=== PATIENT | male | born 1950 | race Caucasian/White ===

== ENCOUNTER 2017-07-03 18:21 | Emergency (ER) | payer OTHER ==
[2017-07-03 18:38] VITALS: TEMP 97.7
--- NOTE | 2017-07-03 19:03 | EDPHY ---
H & P Stated Complaint: pain in right foot 4d pain. hx of pe Time Seen by Provider: 07/03/17 18:30 HPI/ROS: CHIEF COMPLAINT: Right ankle pain and swelling HISTORY OF PRESENT ILLNESS: This is a generally healthy 58-year-old male with a history of pulmonary embolus about 5 years ago, no longer anticoagulated. He presents this evening with 4 days of right ankle pain and swelling, both of which have been increasing. He has had no trauma. The pain comes and goes. The swelling is primarily on the side of his ankle. He has been taking Advil on and off and took 400 mg of ibuprofen 2 hours prior to his presentation. He has not been aware of any warmth or erythema of this ankle. He has not had fever. He has had gout before, not in this location, and states that this does not feel like gout. The nurse from his primary care physician's office recommended that he come for evaluation. REVIEW OF SYSTEMS: A ten point review of systems was performed and is negative with the exception of the items mentioned in the HPI. 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 He is . He does not use tobacco products. He drinks alcohol socially. General Appearance: Alert. Vital signs reviewed. Blood pressure 129/76 at triage, vital signs otherwise normal. Eyes: Pupils equal and round, no conjunctival injection, no discharge. Anicteric. Neck: No lymphadenopathy, supple. Respiratory: Lungs are clear to auscultation; no wheezes, rales, or rhonchi. Cardiovascular: Regular rate and rhythm; no murmur, rub, or gallop. Gastrointestinal: Abdomen is soft and nontender, no masses or organomegaly, bowel sounds normal. Skin: Warm and dry, no rashes on exposed skin, normal color. Extremities: Swelling of the right lateral ankle. No warmth or redness. No pain with active range of motion. Pulses: 2+ dorsalis pedis pulses bilaterally. Neurological: Alert and oriented. Moving all four extremities easily and equally. Psychiatric: Normal affect. - Personal History Current Tetanus/Diphtheria Vaccine: Unsure Current Tetanus Diphtheria and Acellular Pertussis (TDAP): Unsure - Medical/Surgical History Hx Asthma: No Hx Chronic Respiratory Disease: No Hx Diabetes: No Hx Cardiac Disease: No Hx Renal Disease: No Hx Cirrhosis: No Hx Alcoholism: No Hx HIV/AIDS: No Hx Splenectomy or Spleen Trauma: No Other PMH: PNA, PE. high cholesterol - Social History Smoking Status: Former smoker Constitutional: Initial Vital Signs Temperature (C) 36.5 C 07/03/17 18:31 Heart Rate 60 07/03/17 18:31 Respiratory Rate 16 07/03/17 18:31 Blood Pressure 129/76 H 07/03/17 18:31 O2 Sat (%) 94 07/03/17 18:31 O2 Delivery Mode Room Air Allergies/Adverse Reactions: No Known Allergies Allergy (Verified 07/03/17 18:39) Home Medications: Medication Instructions Recorded ASPIRIN 12/24/15 Allopurinol 12/24/15 Probiotic 12/24/15 Statin 07/03/17 Medical Decision Making - Diagnostics Imaging Results: Imaging Impressions Ankle X-Ray 07/03/17 18:59 Impression: 1. No acute osseous abnormality seen about the right ankle. 2. Mild spurring medial aspect of the ankle joint. 3. Stable large os vesalianum Extremity Venous Study 07/03/17 18:59 Impression: No deep venous thrombosis in the right lower extremity. Findings discussed with Mary Khan M.D. at 19:36 hour, 07/03/2017. Imaging: Discussed imaging studies w/ manager call Radiologist, I viewed and interpreted images myself ED Course/Re-evaluation: 66-year-old male with a history of PE who presents with atraumatic right ankle swelling and waxing and waning pain. Ultrasound with right lower extremity negative for DVT. He has no signs or symptoms of PE. X-ray of the right ankle negative for fracture or dislocation. No evidence for osteo myelitis. He does not have significant warmth or redness of this ankle. Gout and pseudogout are possibilities, although he states that this pain is not like the pain he previously experienced with gout. It is not clear what is causing his pain. I am recommending symptomatic treatment with NSAIDs and Tylenol. I recommend follow-up with his primary care provider if he is not improving or if he worsens. Differential Diagnosis: I considered a differential diagnosis that includes but is not limited to gout, pseudogout, septic arthritis, ankle sprain, osteomyelitis, fracture. Departure - Departure Disposition: Home, Routine, Self-Care Clinical Impression: Ankle pain, right Qualifiers: Chronicity: acute Qualified Code(s): M25.571 - Pain in right ankle and joints of right foot Condition: Good Instructions: Arthralgia (ED) Additional Instructions: Adult Pain & Fever Control: We recommend Acetaminophen (Tylenol) and Ibuprofen (Motrin,Advil) for pain and fever control. When fever is high or pain severe, both drugs can be used at the same time, but at different intervals. Please note the time differences. Your dose is: Acetaminophen 650mg every 4 to 6 hours Ibuprofen 400mg every 8 hours with food OR Note: do not take Acetaminophen with Hydrocodone (Vicodin, Lortab) or Oycodone (Percocet). These medications also contain Acetaminophen. No more than 3000mg of Acetaminophen should be taken in 24 hours (for an adult). If you're ankle is not improving I recommend that you follow up with Dr. Gordillo. If you are worse in any way--redness, warmth, severe persistent pain--please be re-evaluated. Referrals: Regine Gordillo MD [Primary Care Provider] - As per Instructions
[2017-07-03 20:50] VITALS: BP 132/76; PULSE 72; RESP 14; O2SAT 95
== END 2017-07-03 20:30 | disposition home or self-care (01) ==
LOC: CED 18:21
DX: M25.571 Pain in right ankle and joints of right foot (principal); Z79.82 Long term (current) use of aspirin; Z87.891 Personal history of nicotine dependence
CPT/HCPCS: 73610-PO; 93971-PO

== ENCOUNTER → 2018-01-30 | Outpatient (CLI) | payer OTHER | LOC: CIMAGING 13:58 | PROVIDERS: ATTEND Family Medicine | DX: J44.9 Chronic obstructive pulmonary disease, unspecified (principal); Z86.711 Personal history of pulmonary embolism | CPT/HCPCS: 71046-PO ==

== ENCOUNTER 2018-08-01 09:28 | Day surgery (SDC) | payer OTHER ==
[2018-08-01] MEDS ORDERED: ACETAMINOPHEN 500 MG TAB PO ONE (09:36)
[2018-08-01] MEDS ORDERED: GABAPENTIN 300 MG CAP PO ONE (09:36)
[2018-08-01] MEDS ORDERED: ceFAZolin 2 GM/DEXTROSE 100 ML IV ONE (09:36)
[2018-08-01] MEDS ORDERED: LR 1,000 ML IV ONE (09:37)
[2018-08-01] MEDS ORDERED: THROMBIN (BOVINE) 20,000 UNIT VIAL TP ONE (09:54)
[2018-08-01] MEDS ORDERED: CHLORHEXIDINE GLUC HIBICLENS 118 ML BTL TP ONE (09:54)
[2018-08-01] MEDS ORDERED: BUPIVACAINE 0.25% 30 ML SDV ONE (09:55)
[2018-08-01] MEDS ORDERED: EPINEPHrine 1 MG/ML INJ ONE (09:55)
[2018-08-01] MEDS ORDERED: BACITRACIN 50,000 UNITS/10 ML SYR IRR ONE (09:55)
--- NOTE | 2018-08-01 10:03 | PDANEPAE ---
ANE History of Present Illness HNP here for microdisc ANE Past Medical History - Cardiovascular History Hx Hypertension: No Hx Arrhythmias: No Hx Chest Pain: No Hx Coronary Artery / Peripheral Vascular Disease: No Hx CHF / Valvular Disease: No Hx Palpitations: No - Pulmonary History Hx COPD: No Hx Asthma/Reactive Airway Disease: No Hx Recent Upper Respiratory Infection: No Hx Oxygen in Use at Home: No Hx Sleep Apnea: No Sleep Apnea Screening Result - Last Documented: Negative Pulmonary History Comment: PE 2006 - Neurologic History Hx Cerebrovascular Accident: No Hx Seizures: No Hx Dementia: No - Endocrine History Hx Diabetes: No - Renal History Hx Renal Disorders: No - Liver History Hx Hepatic Disorders: No - Neurological & Psychiatric Hx Hx Neurological and Psychiatric Disorders: Yes Neurological / Psychiatric History Comment: DEPRESSION/ANXIETY. MILD COGNITIVE IMPAIRMENT - Cancer History Hx Cancer: Yes Cancer History Comment: SKING - Congenital Disorder History Hx Congenital Disorders: No - GI History Hx Gastrointestinal Disorders: No - Other Health History Other Health History: UPPER DENTURES. DDD/STENOSIS/LT LEG N/T. RT HIP ARTHRITIS. GOUT. OSTEOARTHRITIS - Chronic Pain History Chronic Pain: Yes (LOWER BACK WEAKNESS LT LEG) - Surgical History Prior Surgeries: NONE ANE Review of Systems Review of Systems: - Exercise capacity METS (RN): 4 METS ANE Patient History - Allergies Allergies/Adverse Reactions: No Known Allergies Allergy (Verified 07/03/17 18:39) - Home Medications Home Medications: ASPIRIN DAILY 12/24/15 [Last Taken Unknown] Allopurinol HS 12/24/15 [Last Taken Unknown] Atorvastatin Calcium HS 07/31/18 [Last Taken Unknown] Herbals/Supplements -Info Only DAILY 07/31/18 [Last Taken Unknown] MIRTAZAPINE HS 07/31/18 [Last Taken Unknown] Ocuvite Adult 50 Plus Softgel DAILY 07/31/18 [Last Taken Unknown] Venlafaxine 75MG (*) DAILY AT 6PM 07/31/18 [Last Taken Unknown] - NPO status NPO Status: no food or drink >8 hours NPO Since - Liquids (Date): 07/31/18 NPO Since - Liquids (Time): 20:30 NPO Since - Solids (Date): 07/31/18 NPO Since - Solids (Time): 20:30 - Anes Hx Anes Hx: no prior problems - Smoking Hx Smoking Status: Former smoker - Alcohol Use Alcohol Use: Rarely - Family Anes Hx Family Anes Hx: none Family Hx Anesthesia Complications: NONE ANE Labs/Vital Signs - Vital Signs Vital Signs: reviewed preoperatively; see RN documention for details Height: 180.34 cm Weight: 85.275 kg ANE Physical Exam - Airway Neck exam: FROM Mallampati Score: Class 2 Mouth exam: dentures - Pulmonary Pulmonary: no respiratory distress, clear to auscultation - Cardiovascular Cardiovascular: regular rate and rhythym, no murmur, rub, or gallop - ASA Status ASA Status: II ANE Anesthesia Plan Anesthesia Plan: general endotracheal anesthesia Total IV Anesthesia: Yes
[2018-08-01] MEDS ORDERED: MIDAZOLAM 2 MG/2 ML VIAL IVP ONE (10:04)
--- NOTE | 2018-08-01 10:08 | PDHPUP ---
History & Physical Update H&P update statement: This history and physical update is based on an assessment of the patient which was completed after admission or registration (within 24 hours), but prior to the surgery/procedure. H&P update: H&P reviewed & patient examined, no change in patient's condition since H&P completed (Consents signed and site marked. All questions answered.)
[2018-08-01] MEDS ORDERED: fentaNYL 100 MCG/2 ML INJ ONE (10:12)
[2018-08-01] MEDS ORDERED: PROPOFOL 200 MG/20 ML VIAL ONE (10:13)
[2018-08-01] MEDS ORDERED: ROCURONIUM 50 MG/5 ML VIAL ONE (10:13)
[2018-08-01] MEDS ORDERED: LIDOCAINE 2% 100 MG/5 ML SYR ONE (10:13)
[2018-08-01] MEDS ORDERED: PROPOFOL/EMULSION 500 MG/50 ML BOTTLE IV ONE (10:18)
[2018-08-01] MEDS ORDERED: REMIFENTANIL HCL 1 MG VIAL ONE (10:18)
[2018-08-01] MEDS ORDERED: DEXAMETHASONE 4 MG/ML VIAL IVP PRN (12:05)
[2018-08-01] MEDS ORDERED: ACETAMINOPHEN 500 MG TAB PO PRN (12:05)
[2018-08-01] MEDS ORDERED: NALOXONE HCL 0.4 MG/ML INJ IVP PRN (12:05)
[2018-08-01] MEDS ORDERED: ONDANSETRON 4 MG/2 ML VIAL IVP PRN (12:05)
[2018-08-01] MEDS ORDERED: oxyCODONE IR 5 MG TAB PO PRN (12:05)
[2018-08-01] MEDS ORDERED: fentaNYL 100 MCG/2 ML INJ IVP PRN (12:05)
[2018-08-01] MEDS ORDERED: HYDROCODONE/APAP 5/325 TAB PO PRN (12:05)
--- NOTE | 2018-08-01 12:07 | POSTANESTH ---
Post Anesthetic Evaluation Cardiovascular Status: Normal, Stable, Similar to Pre-Op Cond Respiratory Status: Normal, Stable, Similar to Pre-op Cond. Level of Consciousness/Mental Status: Can Participate in Eval, Alert and Oriented Pain Control: Adequate, Prn Tx Ordered Nausea/Vomiting Control: Adequate, Prn Tx Ordered Complications Possibly Related to Anesthesia: None Noted
--- NOTE | 2018-08-01 12:25 | NEUSURGPN ---
Assessment/Plan: POD #0 s/p let L3/4 hemilaminotomy with lateral recess decompression and foraminotomy with nerve root decompression - Doing well - dc home from PACU once d/c criteria met - scripts for Oxycodone and Flexeril on patient chart Subjective: No complaints; pain controlled Objective: Awake and follows commands in all 4 extremities 5/5 strength in bilateral UE/LE throughout including left hip flexor/knee flexion/extension and plantar/dorsiflexion intact sensation throughout Dressing C/D/I Urinary Catheter in Place: No - Physician Patient Seen by : [facility] Physical Exam - Vitals, I&O, Labs I and O 07/31/18 08/01/18 08/02/18 05:59 05:59 05:59 Weight 85.275 kg 85.275 kg Vital Signs Temp Pulse Resp BP Pulse Ox 36.4 C 56 L 14 168/92 H 98 08/01/18 09:54 08/01/18 09:54 08/01/18 09:54 08/01/18 09:54 08/01/18 09:54 ICD10 Worksheet Patient Problems: Problems Problem Status Onset Lumbar disc disease with radiculopathy Acute - ICD10 Problem Qualifiers (1) Lumbar disc disease with radiculopathy
--- NOTE | 2018-08-01 13:08 | GOP ---
DATE OF OPERATION: 08/01/2018 SURGEON: Fred Vance MD OBSERVATION NURSE: Haylie Tolentino, ANITRA. ANESTHESIA: General. PREOPERATIVE DIAGNOSIS: 1. Left-sided L3-L4 lateral recess and foraminal stenosis, secondary to a disk herniation. 2. Left lower extremity radiculopathy and weakness. 3. Treatment refractory to nonoperative intervention. POSTOPERATIVE DIAGNOSIS: 1. Left-sided L3-L4 lateral recess and foraminal stenosis, secondary to disk herniation. 2. Left lower extremity radiculopathy and weakness. 3. Treatment refractory to nonoperative intervention. PROCEDURE PERFORMED: 1. Left-sided L3-L4 hemilaminotomy with medial facetectomy, lateral recess decompression with foraminotomy nerve decompression. 2. Use of intraoperative fluoroscopy, less than 1 hour physician time. 3. Recent monitoring. 4. Use of operating microscope. FINDINGS: no large disc herniations or free fragments were found SPECIMENS: None. ESTIMATED BLOOD LOSS: 10 mL. INDICATIONS: The patient is a very pleasant 67-year-old gentleman who presented to my office with a several-month history of left lower extremity radiculopathy and had evidence of profound weakness of his left lower extremity. He had evidence of lateral recess stenosis and foraminal stenosis, secondary to large disk herniation behind the vertebral body of L3. He also had evidence of severe spinal stenosis at L2-3. After discussion of the risks, benefits, and treatment alternatives, we decided to proceed forth with surgery as described above. DESCRIPTION OF PROCEDURE: The patient was brought to the operating theater and underwent general endotracheal anesthesia without complications. He had Venodynes, VANITA hose, and the appropriate lines placed by Anesthesia. He was flipped prone on Víctor frame and all bony processes inspected and padded. The lower lumbar region was prepped and draped in the usual sterile surgical fashion. A time-out was completed per protocol and the patient received antibiotics within 1 hour of incision. Using live fluoroscopy and spinal needle, we picked our entry point to the L3- L4 level. This was marked in the midline. The incision was infiltrated with Marcaine with epinephrine. The incision was taken down with the scalpel blade and using monopolar, taken down the left side of the interlaminar space of L3- L4 and up cranially toward the pars. Deep retractors were placed to maintain our exposure and we confirmed our level using lateral fluoroscopy. The microscope was brought into the field to assist with microscopic dissection and to maintain illumination and magnification. Using a combination of bur tip on the drill bit and Kerrison punches, we completed the left-sided L3-L4 hemilaminotomy with medial facetectomy. We resected part of the pars. We resected ligamentum flavum and retracted the thecal sac medially. There was no evidence of a large or free fragment disk material there. We did notice some fluid in that area during retraction of the tissues. I felt cranially, caudally , and ventral and across the ventral aspect of thecal sac and did not find any disk herniations. There was a small amount of disk material emanating from the facet joint area, which I removed with the pituitaries. I also reached out and did a foraminotomy. Once I felt that everything was well decompressed, I obtained hemostasis with the bipolar. The wound was irrigated with copious bacitracin irrigation. Because we did not find any disk herniation correlating with the MRI scan from March, I did verify the patient's date of , location on the MRI scan as the left side, as well as information to verify that we were at the correct level on the patient. This was all verified twice by myself. At this point, the patient's wounds were dressed sterilely after being closed in multiple layers. He was then taken to recovery room with improvement in his overall neurological examination. There were no complications and no noted changes on neuromonitoring throughout the procedure. The use of the faculty research assistant was critical to the procedure to assist with retraction and protection of critical tissues. COMPLICATIONS: None. /[id number]/MODL MTDD
[2018-08-01 13:11] VITALS: BP 151/87
== END 2018-08-01 14:40 | disposition home or self-care (01) ==
LOC: FSGY 09:28
PROVIDERS: ATTEND Neurological Surgery
PROC: 00NY0ZZ Release Lumbar Spinal Cord, Open Approach (ICD-10-PCS; principal; 2018-08-01 12:30)
PROC: BR191ZZ Fluoroscopy of Lumbar Spine using Low Osmolar Contrast (ICD-10-PCS; principal; 2018-08-01 12:30)
PROC: 4A10X4G Monitoring of Central Nervous Electrical Activity, Intraoperative, External Approach (ICD-10-PCS; principal; 2018-08-01 12:30)
DX: M48.061 Spinal stenosis, lumbar region without neurogenic claudication (principal); M51.26 Other intervertebral disc displacement, lumbar region; M54.16 Radiculopathy, lumbar region; M21.372 Foot drop, left foot; G62.9 Polyneuropathy, unspecified; G89.29 Other chronic pain; F41.9 Anxiety disorder, unspecified; G47.00 Insomnia, unspecified; F32.9 Major depressive disorder, single episode, unspecified; Z86.711 Personal history of pulmonary embolism
CPT/HCPCS: J0171; J0690; J2001; J2250; J2704; J3010

== ENCOUNTER → 2018-08-11 | Outpatient (CLI) | payer OTHER | LOC: CIMAGING 10:37 | PROVIDERS: ATTEND Family Medicine | DX: N28.1 Cyst of kidney, acquired (principal); N28.89 Other specified disorders of kidney and ureter | CPT/HCPCS: 76770-PO ==

== ENCOUNTER 2018-08-15 09:38 | Observation (INO) | payer OTHER ==
[2018-08-15] MEDS ORDERED: ACETAMINOPHEN 500 MG TAB PO ONE (09:45)
[2018-08-15] MEDS ORDERED: ceFAZolin 2 GM/DEXTROSE 100 ML IV ONE (09:45)
[2018-08-15] MEDS ORDERED: GABAPENTIN 300 MG CAP PO ONE (09:45)
[2018-08-15] MEDS ORDERED: LR 1,000 ML IV ONE (09:47)
[2018-08-15] MEDS ORDERED: MIDAZOLAM 2 MG/2 ML VIAL IVP ONE (10:28)
--- NOTE | 2018-08-15 10:31 | PDANEPAE ---
ANE History of Present Illness 67 year old male for lumbar laminectomyL2 and L4. History of depression and elevated cholesterol. ANE Past Medical History - Cardiovascular History Hx Hypertension: No Hx Arrhythmias: No Hx Chest Pain: No Hx Coronary Artery / Peripheral Vascular Disease: No Hx CHF / Valvular Disease: No Hx Palpitations: No - Pulmonary History Hx COPD: No Hx Asthma/Reactive Airway Disease: No Hx Recent Upper Respiratory Infection: No Hx Oxygen in Use at Home: No Hx Sleep Apnea: No Sleep Apnea Screening Result - Last Documented: Negative Pulmonary History Comment: HX OF PE 2006 - Neurologic History Hx Cerebrovascular Accident: No Hx Seizures: No Hx Dementia: No Neurologic History Comment: CONTINUED SX'S AFTER SURGERY 08/01/18. MILD COGNITIVE IMPAIRMENT. DDD/STENOSIS. LT LEG N/T - Endocrine History Hx Diabetes: No - Renal History Hx Renal Disorders: No Renal History Comment: MOST RECENT MRI SHOWED RENAL CYST- PCP WANTED HIM TO HAVE RENAL US, RESULTS WERE INCONCLUSIVE SO THEY WILL ORDER A CT AT A LATER DATE PER PT REPORT - Liver History Hx Hepatic Disorders: No - Neurological & Psychiatric Hx Hx Neurological and Psychiatric Disorders: Yes Neurological / Psychiatric History Comment: DEPRESSION. ANXIETY - Cancer History Hx Cancer: Yes Cancer History Comment: SKIN - Congenital Disorder History Hx Congenital Disorders: No - GI History Hx Gastrointestinal Disorders: No - Other Health History Other Health History: UPPER DENTURES. WEARS GLASSES. RT HIP ARTHRITIS. GOUT. OSTEOARTHRITIS - Chronic Pain History Chronic Pain: Yes (LOWER BACK WEAKNESS LT LEG) - Surgical History Prior Surgeries: 08/01/18 L3-4 MICRODISCECTOMY WITH WAYLON BOWEN Review of Systems Review of systems is: negative Review of Systems: - Exercise capacity METS (RN): 4 METS ANE Patient History - Allergies Allergies/Adverse Reactions: No Known Allergies Allergy (Verified 08/13/18 12:10) - Home Medications Home Medications: Allopurinol [Allopurinol 300 MG (RX)] 300 mg PO HS 12/24/15 [Last Taken 08/14/18 ] Aspirin [Aspirin 81mg (*)] 81 mg PO HS 12/24/15 [Last Taken 08/11/18] Atorvastatin Calcium [Lipitor 10 mg (*)] 10 mg PO HS 07/31/18 [Last Taken ] C/E/Zn/Cu/OM3/DHA/EPA/LUT/ZEAX [Preservision Areds 2 Softgel] 1 each PO DAILY18 07/31/18 [Last Taken 08/13/18] Mirtazapine [Remeron] 15 mg PO HS 07/31/18 [Last Taken 08/14/18] Venlafaxine Xr [Effexor Xr 75MG (*)] 75 mg PO DAILY18 07/31/18 [Last Taken 08/14] Cholecalciferol Vit D3 [Vitamin D3 2000 units tab (OTC)] 2,000 units PO DAILY18 08/13/18 [Last Taken 08/13/18] [place]-3 Fatty Acids [Fish Oil 1000 mg (*)] 2,000 mg PO BID 08/13/18 [Last Taken 08/11/18] - Smoking Hx Smoking Status: Former smoker - Family Anes Hx Family Hx Anesthesia Complications: NONE ANE Labs/Vital Signs - Vital Signs Height: 180.34 cm Weight: 85.275 kg ANE Physical Exam - Airway Neck exam: FROM Mallampati Score: Class 2 Mouth exam: dentures - Pulmonary Pulmonary: no respiratory distress - Cardiovascular Cardiovascular: regular rate and rhythym - ASA Status ASA Status: II ANE Anesthesia Plan Anesthesia Plan: general endotracheal anesthesia Specialized Airway: video laryngoscope
[2018-08-15] MEDS ORDERED: SURGIFLO MATRIX KIT WITH THROMBIN 8 ML TP ONE (10:32)
[2018-08-15] MEDS ORDERED: AVITENE POWDER 1 GM JAR TP ONE (10:33)
[2018-08-15] MEDS ORDERED: BUPIVACAINE 0.25% 30 ML SDV ONE (10:33)
[2018-08-15] MEDS ORDERED: CHLORHEXIDINE GLUC HIBICLENS 118 ML BTL TP ONE (10:33)
[2018-08-15] MEDS ORDERED: THROMBIN (BOVINE) 5,000 UNIT VIAL TP ONE (10:33)
[2018-08-15] MEDS ORDERED: EPINEPHrine 1 MG/ML INJ ONE (10:34)
[2018-08-15] MEDS ORDERED: PROPOFOL/EMULSION 500 MG/50 ML BOTTLE IV ONE (10:34)
[2018-08-15] MEDS ORDERED: BACITRACIN 50,000 UNITS/10 ML SYR IRR ONE (10:34)
[2018-08-15] MEDS ORDERED: fentaNYL 250 MCG/5 ML INJ ONE (10:38)
--- NOTE | 2018-08-15 10:54 | PDHPUP ---
History & Physical Update H&P update statement: This history and physical update is based on an assessment of the patient which was completed after admission or registration (within 24 hours), but prior to the surgery/procedure. H&P update: H&P reviewed & patient examined, no change in patient's condition since H&P completed, changes noted
[2018-08-15 11:05] LABS: PLATELET COUNT 175 10^3/uL (150-400)
[2018-08-15] MEDS ORDERED: oxyCODONE IR 5 MG TAB PO PRN ×2 (11:48→12:15)
[2018-08-15] MEDS ORDERED: ONDANSETRON 4 MG/2 ML VIAL IVP PRN ×2 (11:48→12:15)
[2018-08-15] MEDS ORDERED: ALBUTEROL 3 ML DEYVIAL IH PRN (11:48)
[2018-08-15] MEDS ORDERED: LR 500 ML IV PRN (11:48)
[2018-08-15] MEDS ORDERED: NALOXONE HCL 0.4 MG/ML INJ IVP PRN (11:48)
[2018-08-15] MEDS ORDERED: PROMETHAZINE HCL 25 MG/ML INJ IVP PRN (11:48)
[2018-08-15] MEDS ORDERED: LABETALOL HCL 5 MG/ML 20 ML MDV IVP PRN (11:48)
[2018-08-15] MEDS ORDERED: fentaNYL 100 MCG/2 ML INJ IVP PRN (11:48)
[2018-08-15] MEDS ORDERED: DEXAMETHASONE 4 MG/ML VIAL IVP PRN (11:48)
[2018-08-15] MEDS ORDERED: diphenhydrAMINE 25 MG CAP PO PRN (12:15)
[2018-08-15] MEDS ORDERED: ONDANSETRON DISINTEGRATING 4 MG TAB PO PRN (12:15)
[2018-08-15] MEDS ORDERED: BISACODYL 10 MG SUPP PR PRN (12:15)
[2018-08-15] MEDS ORDERED: LACTULOSE 20 GM/30 ML UDCUP PO PRN (12:15)
[2018-08-15] MEDS ORDERED: POLYETHYLENE GLYCOL 3350 17 GM PKT PO PRN (12:15)
[2018-08-15] MEDS ORDERED: NS 1,000 ML IV SCH (12:15)
[2018-08-15] MEDS ORDERED: METHOCARBAMOL 750 MG TAB PO PRN (12:15)
[2018-08-15] MEDS ORDERED: MAGNESIUM HYDROXIDE 30 ML UDCUP PO PRN (12:15)
[2018-08-15] MEDS ORDERED: VASOPRESSIN 20 UNIT/ML VIAL ONE (12:40)
[2018-08-15] MEDS ORDERED: ePHEDrine SULFATE 25 MG/5 ML SYR ONE (12:40)
[2018-08-15] MEDS ORDERED: PHENYLEPHRINE HCL 100 MCG/ML SYR ONE (12:40)
[2018-08-15] MEDS ORDERED: ROCURONIUM 50 MG/5 ML VIAL ONE (12:40)
[2018-08-15] MEDS ORDERED: ONDANSETRON 4 MG/2 ML VIAL ONE (12:41)
[2018-08-15] MEDS ORDERED: DEXAMETHASONE 4 MG/ML VIAL ONE (12:41)
[2018-08-15] MEDS ORDERED: oxyCODONE IR 5 MG TAB ONE (13:48)
--- NOTE | 2018-08-15 13:53 | POSTOPPROG ---
Post Op Note Date of Operation: 08/15/18 Surgeon: Fred Vance Book Trimmer: DIA Tolentino PAC Anesthesia: GET(General Endotracheal) Pre-op Diagnosis: Lumbar stenosis Post-op Diagnosis: Lumbar stenosis Indication: Lumbar stenosis Procedure: L2-4 laminectomy decompression Inf/Abcess present in the surg proc area at time of surgery?: No Drains: Eddie MILLER Addendum - Addendum .: S: Resting comfortably, denies any new leg pain, numbness or tingling O: NAD A&Ox3 MAEx4 5/5, except right HF 4+/5 A/P 67y/o F s/p L2-4 laminectomy/decompression -Optimize pain management -PT/OT -GAURAV x1 -Advance diet as tolerated -Please notify NS with any change in neuro/motor exam
[2018-08-15] MEDS: ACETAMINOPHEN 500 MG TAB PO SCH ×2 (15:38→21:00)
[2018-08-15] MEDS ORDERED: CHOLECALCIFEROL VIT D3 2,000 UNITS TAB/CAP PO SCH (18:00)
[2018-08-15] MEDS ORDERED: PRESERVISION AREDS2 FORMULA EYE VIT 1 EACH PO SCH (18:00)
[2018-08-15] MEDS ORDERED: VENLAFAXINE XR 75 MG CAP PO SCH (18:00)
--- NOTE | 2018-08-15 20:16 | GOP ---
DATE OF OPERATION: 08/15/2018 SURGEON: Fred Vance MD COILER: Haylie Tolentino, ANITRA ANESTHESIA: General PREOPERATIVE DIAGNOSIS: 1. Spinal stenosis, L2-L3 and L3-L4, status post recent left L3-4 hemilaminotomy and diskectomy. 2. Ongoing left lower extremity radiculopathy with weakness. 3. Treatment refractory to nonoperative intervention. POSTOPERATIVE DIAGNOSIS: 1. Spinal stenosis, L2-L3, L3-L4, status post recent left L3-4 hemilaminotomy and diskectomy. 2. Ongoing left lower extremity radiculopathy with weakness. 3. Treatment refractory to nonoperative intervention. PROCEDURE PERFORMED: 1. Decompressive laminectomy L2-L3, with redo decompressive laminectomy L3-L4 and spinal cord decompression. 2. Use of intraoperative fluoroscopy, less than 1 hour physician time. 3. Use of neuromonitoring. 4. Use of the operating microscope. FINDINGS: per imaging SPECIMENS: None. ESTIMATED BLOOD LOSS: 20 mL INDICATIONS: The patient is a very pleasant gentleman who presented to my office with acute onset of left lower extremity radiculopathy and weakness. Imaging demonstrated a free fragment behind the L3 vertebral body in the left L3 -4 disk space. After discussion of the risks, benefits, and treatment alternatives, he decided proceed forth with a left-sided L3-4 discectomy. The patient returned to my office with ongoing weakness and pain. He had known evidence of stenosis at the L2-3 level which we opted to leave in place after his 1st surgery. Given his ongoing symptomatology, however, we decided proceed forth with surgical intervention as described above. DESCRIPTION OF PROCEDURE: The patient was brought to operating room and underwent general endotracheal anesthesia without complications. He had Venodynes, VANITA hose, and appropriate lines placed by Anesthesia. He was flipped prone on the Víctor frame and all bony prominences inspected and padded. The lower lumbar region was then prepped and draped in the usual sterile surgical fashion. A time-out was completed per protocol, and the patient received antibiotics within 1 hour of incision. Using lateral fluoroscopy and spinal needle, we picked our entry point to the L2 through L4 levels. This was marked in the midline. This is an extension of his previous incision more cranially. The incision was infiltrated with Marcaine with epinephrine. The incision was taken down with the scalpel blade, and using monopolar, taken down the midline to the lumbodorsal fascia. A subperiosteal dissection was carried out to the medial facet joints of L2-L3 and L3-L4. Care was taken to avoid the previous left-sided L3-4 hemilaminotomy defect. Deep retractors were placed to maintain our exposure. We confirmed our level using lateral fluoroscopy. Using a combination of the bur tip on the drill bit, Kerrison punches, and [place] rongeur, we completed decompressive laminectomy at L2-L3 with a redo decompression at the L3-L4 level. We also completed bilateral medial facetectomies. The foramina felt well decompressed on manual palpation. We obtained hemostasis with the bipolar. The wound was irrigated copiously with bacitracin irrigation. We then closed the wound in multiple layers including Vicryl sutures for the deep layers and Dermabond for the skin. The patient's wounds were dressed sterilely. He was flipped supine onto the transfer cart, where he was awakened, extubated, and taken to the recovery room in stable condition. There were no complications and no noted changes on neuromonitoring throughout the procedure. The use of the PA was crucial to retracting and protecting critical structures intraoperatively. COMPLICATIONS: None. /[id number]/MODL MTDD
[2018-08-15] MEDS: SENNOSIDES/DOCUSATE SODIUM TAB PO SCH (20:42)
[2018-08-15] MEDS: FAMOTIDINE 20 MG TAB PO SCH (20:43)
[2018-08-15] MEDS: ceFAZolin 2 GM/DEXTROSE 100 ML IV SCH (20:55)
[2018-08-15] MEDS ORDERED: ATORVASTATIN CALCIUM 10 MG TAB PO SCH (21:00)
[2018-08-15] MEDS ORDERED: MIRTAZAPINE 15 MG TAB PO SCH (21:00)
[2018-08-15] MEDS ORDERED: ALLOPURINOL 300 MG TAB PO SCH (21:00)
[2018-08-16] MEDS: ACETAMINOPHEN 500 MG TAB PO SCH (05:09)
[2018-08-16] MEDS: ceFAZolin 2 GM/DEXTROSE 100 ML IV SCH (05:16)
[2018-08-16 05:39] LABS: PLATELET COUNT 152 10^3/uL (150-400)
[2018-08-16 08:20] VITALS: BP 135/89
[2018-08-16] MEDS: FAMOTIDINE 20 MG TAB PO SCH (08:23)
[2018-08-16] MEDS: SENNOSIDES/DOCUSATE SODIUM TAB PO SCH (08:23)
--- NOTE | 2018-08-16 08:53 | SOAPPROG ---
SOAP Progress Note Assessment/Plan: Assessment: 67 yo M POD #1 L2-4 laminectomy Plan: neuro: stable and doing well overall PT/OT juno x 1, likely remove today dc home today please anita with neuro changes 08/16/18 08:50 Subjective: back pain tolerable, no leg pain, no weakness. Objective: Vital Signs Temp Pulse Resp BP Pulse Ox 36.8 C 73 14 135/89 H 98 08/16/18 08:00 08/16/18 08:00 08/16/18 08:00 08/16/18 08:00 08/16/18 08:00 Laboratory Results 08/16/18 04:33 08/16/18 04:33 08/15/18 08/16/18 08/17/18 05:59 05:59 04:59 Intake Total 3200 120 Output Total 580 Balance 2620 120 AAOx4, +FC PERRL, no facial droop 5/5 + light touch C/D/I ICD10 Worksheet Patient Problems: Problems Problem Status Onset Lumbar disc disease with radiculopathy Acute
[2018-08-16] MEDS ORDERED: ENOXAPARIN 40 MG/0.4 ML SYR SC SCH (12:15)
== END 2018-08-16 13:22 | disposition home or self-care (01) ==
LOC: F3N 09:38
PROVIDERS: ADMIT Neurological Surgery; ATTEND Neurological Surgery
PROC: 0SB20ZZ Excision of Lumbar Vertebral Disc, Open Approach (ICD-10-PCS; principal; 2018-08-15 11:15)
PROC: 00NY0ZZ Release Lumbar Spinal Cord, Open Approach (ICD-10-PCS; principal; 2018-08-15 11:15)
PROC: BR191ZZ Fluoroscopy of Lumbar Spine using Low Osmolar Contrast (ICD-10-PCS; principal; 2018-08-15 11:15)
PROC: 4A10X4G Monitoring of Central Nervous Electrical Activity, Intraoperative, External Approach (ICD-10-PCS; principal; 2018-08-15 11:15)
DX: M48.061 Spinal stenosis, lumbar region without neurogenic claudication (principal); M47.26 Other spondylosis with radiculopathy, lumbar region; M51.36 Other intervertebral disc degeneration, lumbar region; M21.372 Foot drop, left foot; E78.5 Hyperlipidemia, unspecified; M10.9 Gout, unspecified; F43.23 Adjustment disorder with mixed anxiety and depressed mood; Z86.711 Personal history of pulmonary embolism; Z86.718 Personal history of other venous thrombosis and embolism; Z87.891 Personal history of nicotine dependence
CPT/HCPCS: 63047; 63048; 76001; 97161; 97165; 97530; G0378; J0171; J0690; J1100; J2250; J2370; J2405; J2704; J3010

== ENCOUNTER → 2018-08-21 | Outpatient (CLI) | payer OTHER ==
[~2018-08-21] MED LIST: IOPAMIDOL (ISOVUE-300) 100 ML BTL ONE
== END ==
LOC: CIMAGING 09:12
PROVIDERS: ATTEND Family Medicine
DX: N28.1 Cyst of kidney, acquired (principal); N20.0 Calculus of kidney; I70.0 Atherosclerosis of aorta; I70.8 Atherosclerosis of other arteries; K59.00 Constipation, unspecified
CPT/HCPCS: 74170-PO; Q9967